=== PATIENT | male | born 1955 | race Caucasian/White ===

== ENCOUNTER 2021-09-19 05:53 | Day surgery (SDC) | payer MEDICARE, OTHER ==
[~2021-09-19 05:53] MED LIST: Lactated Ringers 1,000 ML IV SCH; Lidocaine 1%/Sod Bicarbonate in NS 8.4% 1 ML Syringe IDERM PRN; Sodium Chloride 0.9% 10 ML Syringe FLUSH PRN
[2021-09-19] MEDS ORDERED: Morphine 8 MG, EPINEPHrine 0.3 MG, Cefuroxime 750 MG, Ketorolac 30 MG, Sodium Chloride ... PRN ×10 (06:00→07:03)
[2021-09-19] MEDS ORDERED: Pregabalin 25 MG Cap PO SCH ×3 (06:00→07:15)
[2021-09-19] MEDS ORDERED: oxyCODONE ER 10 MG TAB.ER PO SCH ×2 (06:00→07:15)
[2021-09-19] MEDS ORDERED: Acetaminophen 325 MG Tab PO SCH ×2 (06:00→07:15)
--- NOTE | 2021-09-19 06:19 | PCM.PREANE ---
Preanesthetic Assessment - Procedure Proposed Procedure: Left knee patellar revision - Anesthesia/Transfusion/Family Hx Anesthesia History: Prior Anesthesia Without Reaction (Patient stated last time spinal took 6-8 hours, patient stated that it was done in [place] and the [facility] thea provider that took care of him gave him "mulitple medications" in spinal) Family History of Anesthesia Reaction: No Transfusion History: No Prior Transfusion(s) Intubation History: Unknown - Review of Systems General: No Symptoms Pulmonary: No Symptoms Cardiovascular: No Symptoms Gastrointestinal: No Symptoms Neurological: No Symptoms Other: Reports: Anxiety - Physical Assessment NPO Status Date: 09/18/21 NPO Status Time: 21:00 Vital Signs: BP 120/79 HR 76 RR 16 94% RA 97.8 Height: 1.8 m Weight: 88.5 kg ASA Class: 2 Mental Status: Alert & Oriented x3 Airway Class: Mallampati = 3 Dentition: Reports: [place](s), [place] Thyro-Mental Finger Breadths: 3 Mouth Opening Finger Breadths: 2 ROM/Head Extension: Full Lungs: Clear to Auscultation, Normal Respiratory Effort Cardiovascular: Regular Rate, Regular Rhythm, No Murmurs - Lab Values: Labs reviewed and okay to proceed with procedure - Imaging/EKG Impressions: EKG NSR HR 75, old inferior [place], normal compared to 07/05/20, see EKG (08/31/21) - Allergies Allergies/Adverse Reactions: Allergies Allergy/AdvReac Type Severity Reaction Status Date / Time No Known Allergies Allergy Verified 09/16/21 13:15 - Anesthesia Plan Pre-Op Medication Ordered: Other ([facility] this am at 0530; Dr. Melendez pre-op meds Oxycotin, lyrica, acetaminophen) - Acknowledgements Anesthesia Type Planned: Spinal Pt an Appropriate Candidate for the Planned Anesthesia: Yes Alternatives and Risks of Anesthesia Discussed w Pt/Guardian: Yes Pt/Guardian Understands and Agrees with Anesthesia Plan: Yes PreAnesthesia Questionnaire HEENT History: Reports: Impaired Vision, Other (See Below) Other HEENT History: wears glasses Cardiovascular History: Reports: High Cholesterol (Placed on for "floater in eye as a precaution per patient"), Hypertension Respiratory History: Reports: None Gastrointestinal History: Reports: GERD (Patient has heartburn but on pepcid, patient stated that he hasn't had for months) Genitourinary History: Reports: None WHEAT WASHER History: Reports: None Musculoskeletal History: Reports: Osteoarthritis Neurological History: Reports: None Psychiatric History: Reports: Anxiety, Other (See Below) Other Psychiatric History: insomnia, fatigue Endocrine/Metabolic History: Reports: None Hematologic History: Reports: None Immunologic History: Reports: None Oncologic (Cancer) History: Reports: None Dermatologic History: Reports: None - Infectious Disease History Infectious Disease History: Reports: None - Past Surgical History HEENT Surgical History: Reports: None Cardiovascular Surgical History: Reports: None Respiratory Surgical History: Reports: None GI Surgical History: Reports: Colonoscopy Female Surgical History: Reports: None Male Surgical History: Reports: None Endocrine Surgical History: Reports: None Neurological Surgical History: Reports: None Musculoskeletal Surgical History: Reports: Knee Replacement (Left side 2019), Other (See Below) Other Musculoskeletal Surgeries/Procedures:: right knee surgery, right elbow s urgery 1994, right shoulder surgery Oncologic Surgical History: Reports: None Dermatological Surgical History: Reports: None - SUBSTANCE USE Tobacco Use Status *Q: Former Tobacco User (Quit 20 years ago) Tobacco Use Within Last Twelve Months: No Second Hand Smoke Exposure: No Days Per Week of Alcohol Use: 2 Number of Drinks Per Day: 1 Total Drinks Per Week: 2 Recreational Drug Use History: No - HOME MEDS Home Medications: Home Meds Celecoxib 200 mg PO DAILY 09/16/21 [History] Cholecalciferol (Vitamin D3) [Vitamin D3] 1,000 unit PO BID 09/16/21 [History] Lutein/Minerals/Vit A,C & E [Ocuvite] 1 tab PO DAILY 09/16/21 [History] Multivit-Min/Folic/Vit K/Lycop [Men's Daily Formula Tablet] 1 tab PO DAILY 09/16/21 [History] Naproxen Sodium [Aleve] 4 tab PO DAILY PRN 09/16/21 [History] [place]-3/DHA/Epa/Fish Oil [[place]-3 Fish Oil 1,000 MG Sfgl] 1,000 mg PO DAILY 09/16/21 [History] amLODIPine Besylate [Norvasc] 10 mg PO DAILY 09/16/21 [History] atorvaSTATin [Lipitor] 10 mg PO DAILY 09/16/21 [History] lisinopriL [Prinivil] 20 mg PO DAILY 09/16/21 [History] traZODone 50 mg PO BEDTIME 09/16/21 [History] - CURRENT (IN HOUSE) MEDS Current Meds: Current Medications Acetaminophen (Acetaminophen 325 Mg Tab) 975 mg PO ONETIME CHIP Stop: 09/19/21 16:00 Morphine Sulfate 8 mg/Epinephrine HCl 0.3 mg/Cefuroxime Sodium 750 mg/Ketorolac Tromethamine 30 mg/Sodium Chloride 7.9 ml 0 mg .XX ASDIRECTED PRN PRN Reason: Pain Stop: 09/19/21 14:00 Lactated Ringer's (Ringers, Lactated) 1,000 mls @ 125 mls/hr IV ASDIRECTED CHIP Stop: 09/19/21 23:00 Lidocaine/Sodium Bicarbonate (Lidocaine 1%/Sod Bicarbonate In Ns 8.4% 1 Ml Syringe) 0.25 ml IDERM ONETIME PRN PRN Reason: Prior to IV Start Stop: 09/19/21 18:00 Oxycodone HCl (Oxycodone Er 10 Mg Tab.Er) 10 mg PO ONETIME CHIP Stop: 09/19/21 16:00 Pregabalin (Pregabalin 25 Mg Cap) 50 mg PO ONETIME CHIP Stop: 09/19/21 16:00 Sodium Chloride (Sodium Chloride 0.9% 10 Ml Syringe) 10 ml FLUSH ASDIRECTED PRN PRN Reason: Keep Vein Open Stop: 09/19/21 18:00
[2021-09-19] MEDS ORDERED: Vancomycin 1 GM SDV ONE (06:24)
[2021-09-19] MEDS ORDERED: Ropivacaine 0.5% 5 MG/ML 30 ML SDV ONE (06:51)
[2021-09-19] MEDS ORDERED: EPINEPHrine 1 MG/ML SDV ONE (06:51)
[2021-09-19] MEDS ORDERED: fentaNYL 100 MCG/2 ML SDV ONE (06:52)
[2021-09-19] MEDS ORDERED: Propofol 200 MG/20 ML SDV ONE (06:52)
[2021-09-19] MEDS ORDERED: Midazolam 1 MG/ML 2 ML SDV ONE (06:52)
[2021-09-19] MEDS ORDERED: Lidocaine 1%/Sod Bicarbonate in NS 8.4% 1 ML Syringe IDERM PRN (07:03)
[2021-09-19] MEDS ORDERED: Sodium Chloride 0.9% 10 ML Syringe FLUSH PRN (07:04)
[2021-09-19] MEDS ORDERED: Lactated Ringers 1,000 ML IV SCH (07:15)
[2021-09-19] MEDS ORDERED: ceFAZolin 1 GM Vial ONE (07:24)
[2021-09-19] MEDS ORDERED: Lactated Ringers 1,000 ML ONE (07:59)
[2021-09-19] MEDS ORDERED: fentaNYL 100 MCG/2 ML SDV IVPUSH PRN (08:56)
[2021-09-19] MEDS ORDERED: HYDROmorphone 0.5 MG/0.5 ML Syringe IVPUSH PRN (08:56)
[2021-09-19] MEDS ORDERED: Ondansetron 4 MG/2 ML SDV IVPUSH PRN (08:56)
--- NOTE | 2021-09-19 08:58 | PCM.POSTAN ---
POST ANESTHESIA ASSESSMENT - MENTAL STATUS Mental Status: Alert, Oriented - VITAL SIGNS Vital Signs: Last Vital Signs Temp 97.8 F 09/19/21 07:05 Pulse 76 09/19/21 06:30 Resp 16 09/19/21 06:30 BP 120/79 09/19/21 06:30 Pulse Ox 94 L 09/19/21 06:30 - RESPIRATORY Respiratory Status: Respiratory Rate WNL, Airway Patent, O2 Saturation Stable - CARDIOVASCULAR CV Status: Pulse Rate WNL, Blood Pressure Stable - GASTROINTESTINAL GI Status: No Symptoms - PAIN Pain Score: 1 (Shoulder pain) - POST OP HYDRATION Hydration Status: Adequate & Stable - OBSERVATIONS Free Text/Narrative:: Patient appeared to have sleep apnea during procedure, discussed with patient and to discuss with primary care provider for further tests and evaluations.
--- NOTE | 2021-09-19 09:30 | PCM.PRNOTE ---
- Free Text/Narrative Note: Left selective femoral nerve block at the adductor canal for post-procedure pain control under US guidance requested by Dr. Melendez. Time Out: 844 Start: 844 End: 851 Chart reviewed. Consent signed. Questions answered. Appropriate monitors applied. Time out performed. Left mid-shaft femur identified with ultrasound, scanning medially of femur, the femoral artery in the adductor canal visualized, and the femoral nerve located laterally to the artery. The skin was prepped lateral to the ultrasound probe with chlorahexadine times two. The 21ga 4 insulated block needle was inserted under direct ultrasound guidance into the adductor canal. 20mL of 0.5% ropivacaine with 1:200,000 epinephrine was injected circumferentially around the nerve with intermittent negative aspiration noted. Patient tolerated the procedure well. Sterile technique noted along with sterile gloves, mask, and sterile probe cover. See picture on progress note and vital signs on nurses notes. Block completed in PACU. Lolita Coker, BLANKER PRESS OPERATOR
--- NOTE | 2021-09-19 09:43 | CR ---
Left knee: AP and crosstable lateral views of the left knee were obtained. Comparison: Prior left knee exam of 03/18/14. Left knee prosthesis is seen. Components are aligned. Patellar prosthesis is also noted. Soft tissue air is seen. Minimal vascular calcification is noted. Impression: 1. Satisfactory postoperative radiographic appearance of recently placed left knee prostheses. Diagnostic code #2
--- NOTE | 2021-09-19 12:11 | PCM48HPAN ---
Post Anesthesia Note - EVALUATION WITHIN 48HRS OF ANESTHETIC Vital Signs in Normal Range: Yes Patient Participated in Evaluation: Yes Respiratory Function Stable: Yes Airway Patent: Yes Cardiovascular Function Stable: Yes Hydration Status Stable: Yes Pain Control Satisfactory: Yes Nausea and Vomiting Control Satisfactory: Yes Mental Status Recovered: Yes Vital Signs: Last Vital Signs Temp 97.5 F 09/19/21 09:34 Pulse 60 09/19/21 11:30 Resp 16 09/19/21 11:30 BP 112/64 09/19/21 11:30 Pulse Ox 95 09/19/21 11:30
[2021-09-19] MEDS ORDERED: oxyCODONE 5 MG Tab PO PRN (12:58)
--- NOTE | 2021-10-03 12:48 | PCM.OPNOTE ---
- General Post-Op/Procedure Note Date of Surgery/Procedure: 09/19/21 Operative Procedure(s): left total knee arthroplasty patellar componenet revision Pre Op Diagnosis: painful left total knee arthroplasty Post-Op Diagnosis: Same Anesthesia Technique: Local, MAC, Spinal Primary Surgeon: Oscar Melendez Anesthesia Provider: Lolita Coker Baccarat Manager: Abby Tabares Baccarat Manager: Rosina Lyon EBValeria in mLs: 5 Complications: None Condition: Good Free Text/Narrative:: [id number]
--- NOTE | 2021-10-04 07:28 | OR ---
DATE OF OPERATION: 09/19/2021 SURGEON: Oscar Melendez MD OPERATION PERFORMED: Left total knee arthroplasty, patellar component revision. PREOPERATIVE DIAGNOSIS: Painful left total knee arthroplasty. POSTOPERATIVE DIAGNOSIS: Painful left total knee arthroplasty. ANESTHESIA: Local MAC with spinal. ANESTHESIA PROVIDER: Jed Perdomo ASSISTANTS: Abby Tabares PA-C and Rosina Lyon LPN ESTIMATED BLOOD LOSS: 5 mL. COMPLICATIONS: None. CONDITION: Stable. IMPLANTS: [place] size 35 x 10 mm cemented asymmetric patella. DESCRIPTION OF PROCEDURE: The patient was identified in the preoperative holding area. Proper site was marked and identified by the surgeon. The patient was taken back to the operating theater, where after adequate anesthesia, the left lower extremity had a nonsterile tourniquet applied. It was then sterilely prepped and draped in the usual sterile fashion. OR time-out was performed. The patient received 2 g IV Ancef. Left lower extremity was then exsanguinated. Tourniquet was insufflated to 250 mmHg. The previous incision was then utilized and a medial parapatellar arthrotomy was created. At this time, the patient was noted to have a large amount of scar tissue around the patellar component. The rest of the components appeared intact. There were no signs of infection. I then removed a large amount of scar tissue for patellar mobilization around the patella. Once this was done, a caliper was used, and total construct of the patella was measured at 29. The patellar component was then resected and the patella was resected to a 13. Drill holes were then drilled for a 35 x 10 mm patella and was found to be adequate. Cement was mixed on the back table. Pulse lavage irrigation with Ancef was used to irrigate the patella and then was completely dried. Once the cement was ready, the 35 x 10 mm [place] asymmetric patella was then cemented into place. While the cement was drying, 1 L pulse lavage irrigation with Ancef was irrigated through the knee along with 400 mL Irrisept irrigation. Topical tranexamic acid and vancomycin powder were applied. Periarticular injection was completed. #2 barbed suture was used for closure of the medial parapatellar arthrotomy. 2-0 Vicryl and Stratafix were used for subcutaneous closure, and Prineo was used for skin closure. The patient tolerated the procedure well, was sent to PACU in stable condition. MMODAL /[id number]
== END 2021-09-19 13:11 | disposition home or self-care (01) ==
LOC: JD.SJHSC 05:53 → JD.SDS 05:53
PROVIDERS: ATTEND Orthopaedic Surgery
DX: T84.84XA Pain due to internal orthopedic prosthetic devices, implants and grafts, initial encounter (principal); E78.5 Hyperlipidemia, unspecified; I10 Essential (primary) hypertension; G47.00 Insomnia, unspecified; Z79.899 Other long term (current) drug therapy; Z87.891 Personal history of nicotine dependence
CPT/HCPCS: 01392; 73560-26-LT; 73560-LT; 97116-GP; 97161-GP; A9270-GY; C1713; C1776; J0171; J0690; J0697; J1885; J2250; J2270; J2704; J2795; J3010; J3370; J7120

== ENCOUNTER 2021-12-15 09:52 | Day surgery (SDC) | payer MEDICARE, OTHER ==
[~2021-12-15 09:52] MED LIST changes: +EPINEPHrine 1 MG/ML 30 ML MDV IRR SCH; +Lidocaine 1% 6 ML ONE; +Midazolam 1 MG/ML 2 ML SDV ONE; +Ondansetron 4 MG/2 ML SDV ONE; +Propofol 200 MG/20 ML SDV ONE; +Rocuronium 50 MG/5 ML Vial ONE; +Sodium Chloride 0.9% 10 ML Syringe FLUSH SCH; +ceFAZolin 1 GM Vial ONE; +fentaNYL 100 MCG/2 ML SDV ONE
[2021-12-15] MEDS ORDERED: EPINEPHrine 1 MG/ML SDV ONE (09:54)
[2021-12-15] MEDS ORDERED: Ropivacaine 0.5% 5 MG/ML 30 ML SDV ONE (09:54)
[2021-12-15] MEDS ORDERED: Lactated Ringers 1,000 ML ONE (11:37)
[2021-12-15] MEDS ORDERED: ePHEDrine 50 MG/ML SDV ONE (11:47)
[2021-12-15] MEDS ORDERED: Acetaminophen/HYDROcodone 325-5 MG Tab PO ONE (13:30)
== END 2021-12-15 14:20 | disposition home or self-care (01) ==
LOC: JD.SDS 09:52
PROVIDERS: ATTEND Orthopaedic Surgery
DX: M75.22 Bicipital tendinitis, left shoulder (principal); I10 Essential (primary) hypertension; E78.5 Hyperlipidemia, unspecified; G89.29 Other chronic pain; Z79.899 Other long term (current) drug therapy; Z98.890 Other specified postprocedural states; Z87.891 Personal history of nicotine dependence
CPT/HCPCS: 29822; A9270; J0171; J0690; J2250; J2370; J2405; J2704; J2795; J3010; J7120; 01630; 64415; 76942